=== PATIENT | female | born 1980 | race African-American/Black ===

== ENCOUNTER 2020-03-22 05:20 | Inpatient (IN) | payer OTHER ==
[2020-03-22] MEDS ORDERED: ELECTROLYTE-148 SOLN 500 ML IV ONE ×3 (05:40→08:01)
[2020-03-22] MEDS ORDERED: CITRIC ACID/SODIUM CITRATE 30 ML UNIT-DOSE CUP PO ONE ×2 (05:40→08:15)
[2020-03-22 06:14] VITALS: BMI 24.7
[2020-03-22 07:31] LABS: HIV INTERPRETATION NEGATIVE (NEGATIVE)
[2020-03-22] MEDS ORDERED: morphine SULFATE/PF 0.5 MG/ML (2cc Syringe - QUVA) ONE (07:56)
[2020-03-22] MEDS ORDERED: SODIUM CHLORIDE 0.9% P/F 10 ML VIAL IJ ONE (07:59)
[2020-03-22] MEDS ORDERED: OXYTOCIN 10 UNITS/ML VIAL ONE (07:59)
[2020-03-22] MEDS ORDERED: ceFAZolin SODIUM 1 GM VIAL ONE (07:59)
[2020-03-22] MEDS ORDERED: KETOROLAC TROMETHAMINE 30 MG/1 ML VIAL ONE (07:59)
[2020-03-22] MEDS ORDERED: ONDANSETRON 4 MG/2 ML VIAL ONE (07:59)
[2020-03-22] MEDS: ELECTROLYTE-148 SOLN 1,000 ML IV SCH (08:15)
[2020-03-22] MEDS ORDERED: ePHEDrine SULFATE 50 MG/1 ML AMPULE ONE (08:50)
[2020-03-22] MEDS ORDERED: SENNOSIDES/DOCUSATE COMBO (SENNA PLUS) TABLET (UD) PO PRN (09:18)
[2020-03-22] MEDS ORDERED: IBUPROFEN 800 MG/8 ML IJ IVPB PRN (09:18)
[2020-03-22] MEDS ORDERED: METHYLERGONOVINE MALEATE 0.2 MG/1 ML AMP IM PRN (09:18)
[2020-03-22] MEDS ORDERED: morphine SULFATE/PF 0.5 MG/ML (2cc Syringe - QUVA) EP ONE (09:19)
[2020-03-22] MEDS ORDERED: ONDANSETRON 4 MG/2 ML VIAL IVPUSH PRN (09:19)
[2020-03-22] MEDS ORDERED: ACETAMINOPHEN 1000 MG/100 ML VIAL (NON FORMULARY) IVPB ONE (09:21)
[2020-03-22] MEDS: PRENATAL VITAMINS W/ FOLIC ACID TABLET (FP) PO SCH (09:59)
[2020-03-22] MEDS ORDERED: ACETAMINOPHEN INJECTION 100 ML IVPB ONE (10:01)
[2020-03-22] MEDS: OXYTOCIN 20 UNITS in 0.9% NS 20 UNIT/1,000 ML INFUS.BAG IV SCH (12:50)
[2020-03-22] MEDS: ACETAMINOPHEN 325 MG TABLET (FP) PO PRN (17:55)
[2020-03-22] MEDS: IBUPROFEN 600 MG TABLET (FP) PO PRN (17:55)
[2020-03-22] MEDS: LABETALOL HCL 100 MG TABLET (FP) PO SCH (21:52)
[2020-03-23] MEDS: oxyCODONE HCL 5 MG TABLET PO PRN ×3 (07:31→20:04)
[2020-03-23] MEDS: ACETAMINOPHEN 325 MG TABLET (FP) PO PRN ×2 (07:32→20:05)
[2020-03-23] MEDS: SIMETHICONE 80 MG TAB.CHEW (FP) PO PRN ×3 (07:33→20:05)
[2020-03-23] MEDS ORDERED: BISACODYL 10 MG SUPP.RECT RC PRN (09:18)
[2020-03-23 09:26] LABS: BASO % 0.2 % (0-2.0); EOS % 0.3 % (0-4.5); HEMATOCRIT 27.7 % (32.4-45.2); HEMOGLOBIN 9.3 GM/dL (10.7-15.3); LYMPH % 14.4 % (8-40); MCH 31.9 pg (25.7-33.7); MCHC 33.5 g/dl (32.0-36.0); MEAN CELL VOLUME 95.2 fl (80-96); MEAN PLT VOLUME 9.2 fl (7.5-11.1); MONO % 8.8 % (3.8-10.2); NEUT % 76.3 % (42.8-82.8); PLATELET COUNT 226 K/MM3 (134-434); RBC 2.91 M/mm3 (3.60-5.2); RDW 12.6 % (11.6-15.6); WHITE BLOOD COUNT 11.4 K/mm3 (4.0-10.0)
[2020-03-23] MEDS ORDERED: DIPHTH,PERTUSS(ACELL),TET 0.5 ML DISP.SYRIN IM ONE (10:00)
[2020-03-23] MEDS: LABETALOL HCL 100 MG TABLET (FP) PO SCH ×2 (10:24→21:30)
[2020-03-23] MEDS: IBUPROFEN 600 MG TABLET (FP) PO PRN (14:17)
[2020-03-23] MEDS: PRENATAL VITAMINS W/ FOLIC ACID TABLET (FP) PO SCH (14:19)
[2020-03-24] MEDS: ACETAMINOPHEN 325 MG TABLET (FP) PO PRN ×4 (04:42→21:17)
[2020-03-24] MEDS: IBUPROFEN 600 MG TABLET (FP) PO PRN ×3 (04:42→21:18)
[2020-03-24] MEDS: oxyCODONE HCL 5 MG TABLET PO PRN ×3 (04:43→21:19)
[2020-03-24] MEDS: SIMETHICONE 80 MG TAB.CHEW (FP) PO PRN ×3 (04:44→21:20)
[2020-03-24] MEDS: ELECTROLYTE-148 SOLN 1,000 ML IV SCH (05:26)
[2020-03-24] MEDS: OXYTOCIN 20 UNITS in 0.9% NS 20 UNIT/1,000 ML INFUS.BAG IV SCH (05:26)
[2020-03-24] MEDS: PRENATAL VITAMINS W/ FOLIC ACID TABLET (FP) PO SCH (10:37)
[2020-03-24] MEDS: LABETALOL HCL 100 MG TABLET (FP) PO SCH ×2 (10:38→21:18)
[2020-03-25] MEDS: OXYTOCIN 20 UNITS in 0.9% NS 20 UNIT/1,000 ML INFUS.BAG IV SCH (00:04)
[2020-03-25] MEDS: ELECTROLYTE-148 SOLN 1,000 ML IV SCH ×2 (00:04→10:05)
[2020-03-25] MEDS: IBUPROFEN 600 MG TABLET (FP) PO PRN ×2 (05:09→10:18)
[2020-03-25] MEDS: oxyCODONE HCL 5 MG TABLET PO PRN (05:10)
[2020-03-25] MEDS: ACETAMINOPHEN 325 MG TABLET (FP) PO PRN ×2 (05:11→10:19)
[2020-03-25] MEDS: SIMETHICONE 80 MG TAB.CHEW (FP) PO PRN ×2 (05:11→10:18)
[2020-03-25] MEDS: PRENATAL VITAMINS W/ FOLIC ACID TABLET (FP) PO SCH (10:18)
[2020-03-25] MEDS: LABETALOL HCL 100 MG TABLET (FP) PO SCH (10:20)
[2020-03-25 15:40] VITALS: BP 136/88; PULSE 81; TEMP 98.3
== END 2020-03-25 13:50 | disposition home or self-care (01) | DRG 540 ==
LOC: JLDR 05:20 → J3W 10:53
PROVIDERS: ADMIT Obstetrics & Gynecology; ATTEND Obstetrics & Gynecology
PROC: 10D00Z1 Extraction of Products of Conception, Low, Open Approach (ICD-10-PCS; principal; 2020-03-22)
DX: O34.219 Maternal care for unspecified type scar from previous cesarean delivery (principal); O10.92 Unspecified pre-existing hypertension complicating childbirth; Z3A.38 38 weeks gestation of pregnancy; Z37.0 Single live birth
CPT/HCPCS: 36415; 85025; 87389; 90715; J0131